=== PATIENT | male | born 1955 | race African-American/Black ===

== ENCOUNTER 2024-09-25 11:56 | Emergency (ER) | payer MEDICARE ==
[~2024-09-25] VITALS: Ht 172.7 cm; Wt 95.0 kg
[2024-09-25 12:03] VITALS: O2SAT 96
[2024-09-25] MEDS: IBUPROFEN 600MG TABLET PO NR (15:45)
[2024-09-25] MEDS ORDERED: NAPR-681 PO (16:23)
[2024-09-25 16:55] VITALS: BP 135/77; PULSE 91; RESP 18; TEMP 36.89184; O2SAT 96
== END 2024-09-25 16:57 | disposition home or self-care (01) ==
LOC: ER 11:56
DX: M25.561 Pain in right knee (principal); I10 Essential (primary) hypertension
CPT/HCPCS: 73562; 99283